=== PATIENT | male | born 1975 | race Caucasian/White ===

== ENCOUNTER 2021-08-29 08:45 | Day surgery (SDC) | payer OTHER, SELFPAY ==
--- NOTE | 2021-08-29 | HERN_PTH ---
PATIENT: SUAD MANE [place] [facility] [place][id number] AGE/SX: 46/M ROOM: RE08/29/[address]: Dr. Jensen Morgan MD : 1975 BED: DIS: 08/29/2021 SPEC #: [id number] RECD: 08/29/21 13:07 STATUS: TIFFANI ELIANA #: [id number] LISA: 08/29/21 00:[address]: Jensen Morgan DEPT: SURGICAL PATHOLOGY RECD BY: Carlos Joshi ENTERED: 08/29/21 13:07 SP TYPE: Hernia OTHR DR: Kadie Craft, HALI Tissues: HERNIA Procedures: Surgery Specimen Level II HEADER OPERATION: Umbilical hernia repair with mesh PRE-OP DIAGNOSIS: Acute umbilical hernia TISSUE SUBMITTED: Umbilical hernia sac and contents MICROSCOPIC DIAGNOSIS Umbilical hernia, herniorrhaphy: Fibrofatty tissue consistent with hernia sac and contents. AM:iveth 08/30/2021 MICROSCOPIC DESCRIPTION Slides are reviewed. GROSS DESCRIPTION Received in fixative is one container labeled with the patient's name and designated umbilical hernia sac and contents. The specimen consists of an irregular fragment of yellow fatty tissue measuring 5 x 3 x 2.7 cm. Serial sections reveal light akers-yellow cut surfaces. Fairing Man sections are submitted in one cassette. / AM:iveth 08/29/21 TC:5 CPT: 81569
--- NOTE | 2021-08-29 09:21 | PCM.HP.BLA ---
History and Physical Date of Admission: 08/29/21 Intake Visit Reasons: UMBILICAL HERNIA Chief Complaint: umbilical hernia Chief Nurse Executive Required: No Is patient in pain?: Yes (umbilicus) Allergies No Known Allergies Allergy (Unverified 08/18/21 13:09) Medications NK 08/18/21 [History Confirmed 08/18/21] [facility] Medical History Umbilical hernia Surgical History S/P surgical removal of pilonidal cyst Social History Smoking Status: Current every day smoker alcohol intake: current alcohol intake frequency: a few times a month HPI HPI HPI: SUAD MANE, is a 46 M who presents to the office today for surgical consultation regarding an umbilical hernia. The patient is referred by Kadie Craft NP and a written copy of my surgical consult recommendations will be returned to her. The patient states he is known about this hernia for many years perhaps as long as 15 years. He does heavy lifting and straining working in [employer]. He can lift up to 250 -300lbs. He is not able to completely reduce the area. He has not had any surgery there. He is a chronic cigarette smoker and smokes at least a half a pack per day. BMI is elevated at 31.5.. ROS General General: No weight change, appetite, fatigue, colon cancer, breast cancer or weakness HEENT HEENT: No difficulty swallowing, eye injury, eye surgery, swollen glands or hoarseness Endo Endocrine: No thyroid disease, diabetes mellitus, thyroid cancer, Hair loss, heat intolerance or cold intolerance Skin Skin: No rash or changing moles Breast Breast: No left breast lump, right breast lump, nipple discharge, breast pain, abnormal mammogram, abnormal US or breast enlargement Musc Musculoskeletal: No back problems, arthritis, rheumatoid arthritis, gout or joint pain Cardio Cardiovascular: No murmur, pacemaker, heart disease, atrial fibrillation, high blood pressure, heart attack, heart stent, palpitations, shortness of breat with exertion or chest pain Psych Psychiatric: No depression, anxiety or hearing voices Resp Respiratory: No shortness of breath, No sleep apnea, No cough, No COPD, No asthma, No emphysema and No wheezing Gastro Gastrointestinal: No abdominal pain, No nausea or vomiting, No diarrhea, No constipation, No blood in stool, No acid reflux, No hemorrhoids, No ulcers, No gallbladder problem and No black,tarry stools Jude Hematologic: No blood thinners, No blood disorders, No bleeding, No anemia and No blood clots Neuro Neurologic: No system reviewed and no additional complaints, except as documented, No as per HPI, No abnormal gait, No abnormal hearing, No abnormal movements, No abnormal speech, No behavioral changes, No burning sensations, No confusion, No convulsions, No disequilibrium, No dizziness, No localized weakness, No frequent falls, No headache(s), No lack of coordination, No loss of vision, No memory loss, No numbness, No other visual disturbances, No radicular pain, No restless legs, No sensory deficit, No syncope, No tingling, No tremor(s), No weakness and No other Exam Const General: cooperative and healthy appearing Nutritional Appearance: average body habitus Orientation: alert and awake [facility] Head: normal to inspection Eyes General: appearance normal, both eyes and all related structures Resp Effort & Inspection: normal respiratory effort Auscultation: clear to auscultation bilaterally Cardio Rate: regular rate Rhythm: regular rhythm GI Palpation: soft and no hepatosplenomegaly Auscultation: normal bowel sounds Other: Vertical hernia superior aspect of the umbilicus, nonreducible, no erythema, Musc Cervical Spine: normal cervical lordosis Neuro General: patient alert and patient awake Extrem General: no calf tenderness Psych Appearance: grossly normal Assessment and Plan Assessment and Plan (1) Umbilical hernia without obstruction or gangrene: Status: Acute Plan - Dr. Jensen Morgan MD: Nonreducible umbilical hernia. I propose for him an umbilical herniorrhaphy with mesh. I would anticipate likely a Ventralex type product. I have vigorously encouraged the patient to immediately cease his tobacco use. I have cautioned him that there is a 5 fold increased risk of recurrence in tobacco smokers. 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 I encouraged him to seek light duty for postoperative recovery. We had a brief discussion regarding COVID-19 vaccination. The patient is not in favor at this time. Copy: PHILIPPE Jolly M.D., F.A.C.S. Gale have re-examined the patient. There are no clinical changes since date of exam.
[2021-08-29 09:32] VITALS: BP 134/99; PULSE 63; RESP 16; TEMP 36.4; O2SAT 97; BMI 31.1
[2021-08-29] MEDS: Lactated Ringers 1,000 ML 15 ML IV (09:39)
--- NOTE | 2021-08-29 10:01 | EX.PCM.DISCH ---
Discharge Instructions Procedure General Surgery Diet Discharge Diet: Light diet - advance as tolerated (if you have questions about your diet instructions, please talk to you doctor.) Activity Discharge Activity: May Not Drive (for 3-5 days or while taking narcotic pain medicine.) May shower in (days): 1 Lifting Restrictions: 10 pounds Dressing / Incision Call your doctor if your incision/area has: Continuous Slow Oozing, Sudden Increased Bleeding, Increased Pain/ Swelling, Increased Redness and Foul Smelling Discharge Call your doctor if you observe: Fever of 101 or Higher Suture Line Care: Avoid Pulling/Pushing and Avoid Pinching/Bending Additional Dressing/Incision Instructions:: Change or remove dressing in 4 days. Leave steri-strips in place for 1 week. Follow Up Care Please Follow Up With: Jensen Morgan MD When: Call [phone] to make an appointment to be seen in about 10 days. Test Results: Test results from this visit will be discussed in further detail at your follow-up appointment, if applicable. Discharge Plan Admission Attending Provider: Jensen Morgan Primary Care Provider: Kadie Craft NP Discharge Orders/Prescriptions Prescriptions: No Action NK RF: 0
[2021-08-29] MEDS: Bupivacaine Mpf 0.5% 30 ML VIAL (10:49)
--- NOTE | 2021-08-29 11:01 | PCM.OPRPT ---
Report of Operation Date of Procedure: 08/29/21 Pre-Operative Diagnosis: Symptomatic umbilical hernia Post-Operative Diagnosis: Symptomatic incarcerated umbilical hernia Surgery/Procedure Performed:: Umbilical herniorrhaphy with 6.4 cm Ventralex mesh Reference [id number], lot number [id number], expiry date 05/13/2023 Description of Surgical Findings:: Timeout informed consent was obtained. 46-year-old gentleman was taken to the operating placed on the table underwent general endotracheal intubation anesthesia. The abdomen sterilely prepped and draped. Ancef 2 g were given intravenously. A curvilinear incision was made in the inferior portion umbilicus sharp blunt dissection was used to identify preperitoneal fatty tissue incarcerated within umbilical hernia. Sac and contents were excised. Electrocautery. The peritoneum was then elevated to get to the preperitoneal space. A 6.4 cm Ventralex mesh was inserted and the tails were secured with 0 Nurolon. The fascia was then approximated transversely with the same. Subsubcutaneous tissue approximated opted for Monocryl. The umbilical skin was secured to the fascia with the same. The skin edges were approximated interrupted 4 Monocryl subdermal stitches. Dermabond was applied. Periincisional induration is sized with 30 cc of 0.5% Marcaine. Telfa OpSite dressing applied. Sponge and instrument and needle counts were reported to the surgeon to be correct. Specimen hernia sac and contents. Drains none. Blood loss minimal. Jensen Morgan M.D., F.A.C.S. Surgeon: Jensen Morgan Type of Anesthesia: General and Local Anesthesiologist: Delta Remy
[2021-08-29 11:20] VITALS: BP 129/78; BP 134/99; PULSE 75; RESP 16; TEMP 36.1; O2SAT 97
[2021-08-29 11:30] VITALS: BP 134/99; BP 142/97; PULSE 73; RESP 16; O2SAT 99
[2021-08-29 11:45] VITALS: BP 129/78; BP 134/99; PULSE 63; RESP 16; O2SAT 92
[2021-08-29 11:52] VITALS: BP 129/83; BP 134/99; PULSE 62; RESP 16; TEMP 36.2; O2SAT 93
[2021-08-29 12:45] VITALS: BP 126/82; BP 134/99; PULSE 57; RESP 16; TEMP 36.1; O2SAT 96
== END 2021-08-29 13:09 | disposition home or self-care (01) ==
LOC: SDC 08:49 → AC 08:50
PROVIDERS: PCP Nurse Practitioner Family; Referring Provider Surgery; Visit Provider Surgery
PROC: (CPT 49587; principal; 2021-08-29 10:35)
DX: K42.0 Umbilical hernia with obstruction, without gangrene (principal); Z20.822 Contact with and (suspected) exposure to COVID-19; F17.210 Nicotine dependence, cigarettes, uncomplicated
CPT/HCPCS: 00840; 49587; 87426; 88302; C1781; J7120; J2405